=== PATIENT | male | born 1965 | race Caucasian/White ===

== ENCOUNTER 2020-10-15 02:44 | Day surgery (SDC) | payer OTHER, SELFPAY ==
[2020-10-07 13:31] VITALS: BMI 25.8
[2020-10-15 09:21] VITALS: BP 146/90; PULSE 73; RESP 18; TEMP 36.4; O2SAT 99; BMI 26.7
[2020-10-15] MEDS: LACTATED RINGERS 1,000 ML 150 ML IV CONT (09:37)
--- NOTE | 2020-10-15 10:08 | WPDGICN ---
Assessment and Plan Assessment and plan (1) Dysphagia: Code(s): R13.10 - Dysphagia, unspecified Status: Acute Assessment and Plan: Patient has recurrent dysphagia. He is known to have esophageal stricture in 2019. Plan is for EGD possibly for additional dilatation. Also to assess status of his previously diagnosed acid reflux disease. (2) GERD (gastroesophageal reflux disease): Code(s): K21.9 - Gastro-esophageal reflux disease without esophagitis Status: Acute Assessment and Plan: Patient with GE reflux disease. Known to have erosive esophagitis 2019. Long-term use of omeprazole or similar PPI is encouraged. Anti-reflux measures are reiterated today. GI Consult Note Consult date/time: 10/15/20 10:08 HPI: Leopoldo Winslow is a 55 year old male Complains of difficulty swallowing. Patient reports for the last several months that food will catch in the mid substernal portion the chest. This typically happens in the throat. States sandwiches with chicken and bread seem to cause the most difficulty. patient has a history of esophageal stricture dilated in 2019. At that time EGD confirmed erosive esophagitis associated with GE reflux disease. Since that time patient has been maintained on omeprazole 20 mg p.o. daily. He denies any heartburn. He has had no weight loss or bleeding. Presents for follow-up today because recurrent difficulty swallowing. Patient's family history is noncontributory. Patient does report some hip pain for which he is now taking meloxicam. Review of Systems Review of Systems: All systems reviewed & are unremarkable except as noted in HPI and below PMFSH Past Medical History Medical History (Updated 10/15/20 @ 10:12 by Jose Pelaez MD) Dysphagia Overweight (BMI 25.0-29.9) Social History Social History Smoking status: Never smoker Alcohol intake: current Drinks per week: 2 Substance use: never Substance use type: does not use Living arrangements: with family Gender identity (if verbalized by the patient): Male Spiritual care concerns: No Meds Home Medications and Allergies Home Medications Medication Instructions Recorded Confirmed Type meloxicam 15 mg tablet 15 mg PO DAILY 09/26/20 10/15/20 History omeprazole 20 mg capsule,delayed 20 mg PO DAILY 09/26/20 10/15/20 History release Allergies Allergy/AdvReac Type Severity Reaction Status Date / Time No Known Allergies Allergy Verified 10/15/20 09:28 Vital Signs Vital Signs - 24 hr 10/15/20 09:21 Temperature 97.6 F Pulse Rate 73 Respiratory Rate 18 Blood Pressure 146/90 H Pulse Oximetry 99 Exam Narrative: physical exam reveals patient to be alert. Vital signs are stable. HEENT exam is unremarkable. Patient is anicteric. Lungs are clear to auscultation and percussion. Heart is without murmur or extra sounds. Abdominal exam bowel sounds are present soft nontender with no organomegaly. Digital external rectal exam is normal.
--- NOTE | 2020-10-15 10:16 | WPDANESEPPF ---
Anes - Initial Pre Proc Eval Procedure: Operation Date: 10/15/20 10:45 Proposed Procedures p Esophagogastroduodenoscopy - Jose Pelaez MD Date/Time: 10/15/20 10:16 Surgeon: Jose Pelaez MD Pre Op Diagnosis: dysphagia Patient Data Age: 55 Gender: M Height: 1.8 m Weight: 87 kg Last Vital Signs Temp 97.6 F 10/15/20 09:21 Pulse 73 10/15/20 09:21 Resp 18 10/15/20 09:21 BP 146/90 H 10/15/20 09:21 Pulse Ox 99 10/15/20 09:21 Allergies Allergy/AdvReac Type Severity Reaction Status Date / Time No Known Allergies Allergy Verified 10/15/20 09:28 Home Medications Medication Instructions Recorded Confirmed Type meloxicam 15 mg tablet 15 mg PO DAILY 09/26/20 10/15/20 History omeprazole 20 mg capsule,delayed 20 mg PO DAILY 09/26/20 10/15/20 History release Patient hx anesthesia problems: none Family hx anesthesia problems: none [facility] Past Medical History Medical History (Updated 10/15/20 @ 10:12 by Jose Pelaez MD) Dysphagia Overweight (BMI 25.0-29.9) Social History Social History Smoking status: Never smoker Alcohol intake: current Drinks per week: 2 Substance use: never Substance use type: does not use Living arrangements: with family Gender identity (if verbalized by the patient): Male Spiritual care concerns: No Anes - Eval Final PreProcedure Day of Procedure 10/15/20 10:16 Patient weight: overweight Heart: regular rate and rhythm Lungs: clear to auscultation Airway: Mallampati scale class II Neurological: alert and oriented Last oral intake: >/= 8 hours ASA classification: II Emergent: no Anesthetic plan: proceed Anesthesia type and monitoring: general GIVS and standard monitoring Informed Consent: The patient's anesthetic plan and its attendant risks and benefits were discussed with the patient/family/POA. Questions were solicited and answers provided to the satisfaction of the patient/family/POA.
[2020-10-15 10:30] VITALS: BP 140/97; PULSE 72; RESP 17; O2SAT 95
[2020-10-15 10:40] VITALS: BP 134/90; PULSE 63; RESP 18; O2SAT 97
[2020-10-15 10:50] VITALS: BP 139/95; PULSE 62; RESP 16; O2SAT 96
== END 2020-10-15 11:00 | disposition home or self-care (01) ==
PROVIDERS: PCP Internal Medicine; Visit Provider Internal Medicine Gastroenterology
PROC: 0DJ08ZZ Inspection of Upper Intestinal Tract, Via Natural or Artificial Opening Endoscopic (ICD-10-PCS; CPT 43235; principal; 2020-10-15 10:45)
DX: R13.10 Dysphagia, unspecified (principal); K21.01 Gastro-esophageal reflux disease with esophagitis, with bleeding; K44.9 Diaphragmatic hernia without obstruction or gangrene; K22.2 Esophageal obstruction
CPT/HCPCS: 43235; 43450; J2001; J2704; J7120

== ENCOUNTER 2021-02-20 01:52 | Day surgery (SDC) | payer OTHER, SELFPAY ==
[2021-02-12 13:07] VITALS: BMI 27.2
[2021-02-20 11:34] VITALS: BP 149/92; PULSE 65; RESP 16; TEMP 36.6; O2SAT 100
--- NOTE | 2021-02-20 11:42 | P.PNAN_ITS ---
Anes - Initial Pre Proc Eval Procedure: Operation Date: 02/20/21 13:00 Proposed Procedures p Esophagogastroduodenoscopy - Jose Pelaez MD Date/Time: 02/20/21 11:42 Surgeon: Jose Pelaez MD Pre Op Diagnosis: GERD, esophageal stricture Patient Data Age: 55 Gender: M Height: 1.78 m Weight: 85.7 kg Last Vital Signs Temp 36.6 C 02/20/21 11:34 Pulse 65 02/20/21 11:34 Resp 16 02/20/21 11:34 BP 149/92 H 02/20/21 11:34 Pulse Ox 100 02/20/21 11:34 Allergies Allergy/AdvReac Type Severity Reaction Status Date / Time No Known Allergies Allergy Verified 02/20/21 11:32 Home Medications Medication Instructions Recorded Confirmed Type meloxicam 15 mg tablet 15 mg PO DAILY 09/26/20 02/20/21 History omeprazole 20 mg capsule,delayed 40 mg PO DAILY cap 11/14/20 02/20/21 History release dicyclomine 10 mg capsule 10 mg PO TID 01/15/21 02/20/21 History Patient hx anesthesia problems: none Family hx anesthesia problems: none Results Review: All pre-operative results and documents have been reviewed as part of the pre-operative evaluation. [facility] Past Medical History Medical History Dysphagia Overweight (BMI 25.0-29.9) Surgical History Surgical History (Updated 02/20/21 @ 11:42 by Elpidio Wooten MD) H/O hernia repair History of appendectomy Family History Family History Mother Family history of chronic obstructive pulmonary disease Family history of diabetes mellitus in first degree relative Other Cerebrovascular accident Diabetes mellitus Family history of cardiovascular disease Social History Social History Smoking status: Never smoker Alcohol intake: current Drinks per week: 2 Substance use: never Substance use type: does not use Living arrangements: with family Gender identity (if verbalized by the patient): Male Spiritual care concerns: No Anes - Eval Final PreProcedure Day of Procedure 02/20/21 11:42 Patient weight: overweight Heart: regular rate and rhythm Lungs: clear to auscultation Airway: Mallampati scale class II Neurological: alert and oriented Last oral intake: >/= 8 hours ASA classification: II Emergent: no Anesthetic plan: proceed Anesthesia type and monitoring: general GIVS and standard monitoring Results Review: All pre-operative results and documents have been reviewed as part of the pre-operative evaluation. Informed Consent: The patient's anesthetic plan and its attendant risks and benefits were discussed with the patient/family/POA. Questions were solicited and answers provided to the satisfaction of the patient/family/POA.
[2021-02-20] MEDS: LACTATED RINGERS 1,000 ML 150 ML IV CONT (11:43)
--- NOTE | 2021-02-20 12:05 | WPDGICN ---
Assessment and Plan Assessment and plan (1) GERD (gastroesophageal reflux disease): Code(s): K21.9 - Gastro-esophageal reflux disease without esophagitis Status: Acute Assessment and Plan: Patient with a longstanding history of GE reflux. He requires PPI therapy for therapy for control. Plan for follow-up EGD because of severe esophagitis as well as esophageal stricture. Recently had recurrent dysphagia suggesting may need additional dilatation. (2) Dysphagia: Code(s): R13.10 - Dysphagia, unspecified Status: Acute Assessment and Plan: History of esophageal stricture on the basis of acid reflux. Plan for follow-up EGD because of dysphagia. GI Consult Note Consult date/time: 02/20/21 12:05 HPI: Leopoldo Winslow Jr. is a 55 year old male presents for EGD. Patient has a history of severe GE reflux disease. He was found to have significant esophagitis distal esophageal stricture requiring dilatation several months ago. Patient noticed recurrent symptoms upon decreasing his omeprazole to20mg p.o. daily. He has had some improvement on increasing the dose of omeprazole to40mg p.o. daily. Patient presents today for follow-up examination because of severe esophagitis history of stricture and recurrent dysphagia. He states that he is swallowing somewhat improved improved on higher dose of PPI therapy. Review of Systems Review of Systems: All systems reviewed & are unremarkable except as noted in HPI and below PMFSH Past Medical History Medical History Dysphagia Overweight (BMI 25.0-29.9) Surgical History Surgical History (Updated 02/20/21 @ 11:42 by Elpidio Wooten MD) H/O hernia repair History of appendectomy Family History Family History Mother Family history of chronic obstructive pulmonary disease Family history of diabetes mellitus in first degree relative Other Cerebrovascular accident Diabetes mellitus Family history of cardiovascular disease Social History Social History Smoking status: Never smoker Alcohol intake: current Drinks per week: 2 Substance use: never Substance use type: does not use Living arrangements: with family Gender identity (if verbalized by the patient): Male Spiritual care concerns: No Meds Home Medications and Allergies Home Medications Medication Instructions Recorded Confirmed Type meloxicam 15 mg tablet 15 mg PO DAILY 09/26/20 02/20/21 History omeprazole 20 mg capsule,delayed 40 mg PO DAILY cap 11/14/20 02/20/21 History release dicyclomine 10 mg capsule 10 mg PO TID 01/15/21 02/20/21 History Allergies Allergy/AdvReac Type Severity Reaction Status Date / Time No Known Allergies Allergy Verified 02/20/21 11:32 Vital Signs Vital Signs - 24 hr 02/20/21 11:34 Temperature 97.8 F Pulse Rate 65 Respiratory Rate 16 Blood Pressure 149/92 H Pulse Oximetry 100 Exam Narrative: Physical exam reveals patient be alert. Vital signs stable. HEENT exam is unremarkable. Patient is anicteric. Lungs are clear to auscultation and percussion. Heart is without murmur or extra sounds. Abdominal exam bowel sounds present soft nontender with no hepatosplenomegaly. Rectal exam deferred today.
[2021-02-20 12:21] VITALS: BP 129/78; PULSE 68; RESP 15; O2SAT 100
[2021-02-20 12:31] VITALS: BP 122/82; PULSE 70; RESP 13; O2SAT 94
[2021-02-20 12:41] VITALS: BP 141/94; PULSE 56; RESP 17; O2SAT 99
== END 2021-02-20 12:54 | disposition home or self-care (01) ==
PROVIDERS: PCP Internal Medicine; Visit Provider Internal Medicine Gastroenterology
PROC: 0DJ08ZZ Inspection of Upper Intestinal Tract, Via Natural or Artificial Opening Endoscopic (ICD-10-PCS; CPT 43235; principal; 2021-02-20 13:00)
DX: K21.9 Gastro-esophageal reflux disease without esophagitis (principal); K22.2 Esophageal obstruction
CPT/HCPCS: 43235; 43450; J2001; J2704; J7120